=== PATIENT | female | born 1975 | race African-American/Black ===

== ENCOUNTER 2017-02-17 19:09 | Emergency (ER) | payer OTHER ==
--- NOTE | 2017-02-17 20:10 | ER Document Report ---
ED Medical Screen (RME) - General Chief Complaint: Chest Pain Stated Complaint: CHEST PAIN Time Seen by Provider: 02/17/17 20:00 Notes: This 41-year-old female patient reports onset about 6 PM tonight of left parasternal chest pain with sensation that the chest swelled up briefly. There is also pain from the left shoulder going onto the arm which still persists. Patient is not a smoker. She reports she has been told she had high blood pressure from time to time. She possibly had elevated cholesterol in the past. Family history is positive for early onset coronary artery disease in her father who had multiple stents and by history he began having problems in his 30s. He has since then. I have greeted and performed a rapid initial assessment of this patient. A comprehensive ED assessment and evaluation of the patient, analysis of test results and completion of the medical decision making process will be conducted by additional ED providers. TRAVEL OUTSIDE OF THE [place] IN LAST 30 DAYS: No - Related Data Allergies/Adverse Reactions: No Known Allergies Allergy (Unverified 09/06/15 08:36) Past Medical History - Past Medical History Cardiac Medical History: Denies: Hx Coronary Artery Disease, Hx Heart Attack, Hx Hypertension Pulmonary Medical History: Reports: Hx Asthma - inhalers/cpap Denies: Hx Bronchitis, Hx COPD, Hx Pneumonia Neurological Medical History: Denies: Hx Cerebrovascular Accident, Hx Seizures Renal/ Medical History: Denies: Hx Peritoneal Dialysis Musculoskeltal Medical History: Reports Hx Arthritis - knee - Immunizations Immunizations up to date: Yes Hx Diphtheria, Pertussis, Tetanus Vaccination: No Physical Exam - Vital signs Vitals: Temp Pulse Resp BP Pulse Ox 98.4 F 90 20 141/90 H 99 02/17/17 19:26 02/17/17 19:26 02/17/17 19:26 02/17/17 19:26 02/17/17 19:26 Course - Vital Signs Vital signs: Temp Pulse Resp BP Pulse Ox 98.4 F 90 20 141/90 H 99 02/17/17 19:26 02/17/17 19:26 02/17/17 19:26 02/17/17 19:26 02/17/17 19:26
--- NOTE | 2017-02-17 20:32 | RADIOLOGY REPORT (SQ) ---
EXAM DESCRIPTION: CHEST PA/LAT COMPLETED DATE/TIME: 02/17/2017 8:22 pm REASON FOR STUDY: chest pain COMPARISON: November 2008 EXAM PARAMETERS: NUMBER OF VIEWS: two views TECHNIQUE: Digital Frontal and Lateral radiographic views of the chest acquired. RADIATION DOSE: NA LIMITATIONS: none FINDINGS: LUNGS AND PLEURA: No opacities, masses or pneumothorax. No pleural effusion. MEDIASTINUM AND HILAR STRUCTURES: No masses or contour abnormalities. HEART AND VASCULAR STRUCTURES: Heart normal size. No evidence for failure. BONES: No acute findings. HARDWARE: None in the chest. OTHER: No other significant finding. IMPRESSION: NO SIGNIFICANT RADIOGRAPHIC FINDING IN THE CHEST. TECHNICAL DOCUMENTATION: JOB ID: [id number] [employer]- All Rights Reserved
[2017-02-17 20:37] LABS: ABSOLUTE EOSINOPHILS # (AUTO) 0.1 10^3/uL (0.0-0.6); ABSOLUTE LYMPHOCYTES (AUTO) 1.5 10^3/uL (0.5-4.7); ABSOLUTE MONOCYTES (AUTO) 0.3 10^3/uL (0.1-1.4); ABSOLUTE NEUT (AUTO) 4.6 10^3/uL (1.7-8.2); BASOPHILS % (AUTO) 0.7 % (0-2); EOSINOPHILS % (AUTO) 1.3 % (0-6); HEMATOCRIT 38.5 % (36.0-47.0); HEMOGLOBIN 12.8 g/dL (12.0-15.5); HGB HCT DIFFERENCE -0.1; LYMPHOCYTES % (AUTO) 22.6 % (13-45); MEAN CORPUSCULAR HEMOGLOBIN 27.6 pg (27.0-33.4); MEAN CORPUSCULAR HGB CONC 33.1 g/dL (32.0-36.0); MEAN CORPUSCULAR VOLUME 84 fl (80-97); MONOCYTES % (AUTO) 5.2 % (3-13); RED BLOOD COUNT 4.62 10^6/uL (3.72-5.28); RED CELL DISTRIBUTION WIDTH 14.9 % (11.5-14.0); SEGMENTED NEUTROPHILS % (AUTO) 70.2 % (42-78); WHITE BLOOD COUNT 6.6 10^3/uL (4.0-10.5)
[2017-02-17 21:03] LABS: ALANINE AMINOTRANSFERASE 37 U/L (9-52); ALBUMIN 4.7 g/dL (3.5-5.0); ALKALINE PHOSPHATASE 84 U/L (38-126); ANION GAP 12 (5-19); ASPARTATE AMINO TRANSFERASE 20 U/L (14-36); BILIRUBIN,DIRECT 0.4 mg/dL (0.0-0.4); BILIRUBIN,TOTAL 0.4 mg/dL (0.2-1.3); BLOOD UREA NITROGEN 11 mg/dL (7-20); CALCIUM 10.1 mg/dL (8.4-10.2); CARBON DIOXIDE 32 mmol/L (22-30); CHLORIDE 100 mmol/L (98-107); CHOLESTEROL 202.69 mg/dL (0-200); CREATINE KINASE 64 U/L (30-135); CREATININE RESULT 0.72 mg/dL (0.52-1.25); GLUCOSE 80 mg/dL (75-110); POTASSIUM 3.9 mmol/L (3.6-5.0); SODIUM 143.6 mmol/L (137-145); TOTAL PROTEIN 8.4 g/dL (6.3-8.2); TRIGLYCERIDES 255 mg/dL (<150)
--- NOTE | 2017-02-17 21:36 | ER Document Report ---
ED Cardiac - General Chief Complaint: Chest Pain Stated Complaint: CHEST PAIN Time Seen by Provider: 02/17/17 20:00 Mode of Arrival: Ambulatory Information source: Patient TRAVEL OUTSIDE OF THE [place] IN LAST 30 DAYS: No - HPI Patient complains to provider of: Chest pain Use of: Amphetamines - MAYBE, WEIGHT LOSS MED, THINKS MAYBE PHENTERMINE. denies : Alcohol, Bath salts, Caffeine, Cocaine, Decongestants Was the onset of pain: Sudden When did pain begin: 1800 HRS Is the pain a: New problem Chest pain location: Other - LEFT PARASTERNAL Quality of pain: Sharp, Tightness Chest pain radiation location: Left arm Severity now: None Severity at worst: Moderate Chest pain precipitating factors: Physical Exertion - MINIMAL (FOLDING CLOTHES) Positive cardiac history: No Associated symptoms: Shortness of breath - SLIGHT, Swelling/lump in chest - PROMINENT, VISIBLE AND PALPABLE. denies: Diaphoresis, Nausea/vomiting Exacerbated by: Other - PALPATION Relieved by: Other - IMPROVED W/ TIME Similar symptoms previously: No Recently seen / treated by doctor: Yes - [facility] - Related Data Allergies/Adverse Reactions: No Known Allergies Allergy (Unverified 09/06/15 08:36) Past Medical History - General Information source: Patient - Social History Smoking Status: Former Smoker Cigarette use (# per day): No Chew tobacco use (# tins/day): No Frequency of alcohol use: Rare Drug Abuse: None Lives with: Spouse/Significant other Family History: Reviewed & Not Pertinent - Past Medical History Cardiac Medical History: Denies: Hx Coronary Artery Disease, Hx Heart Attack, Hx Hypertension Pulmonary Medical History: Reports: Hx Asthma - inhalers/cpap Denies: Hx Bronchitis, Hx COPD, Hx Pneumonia Neurological Medical History: Denies: Hx Cerebrovascular Accident, Hx Seizures Renal/ Medical History: Denies: Hx Peritoneal Dialysis Musculoskeltal Medical History: Reports Hx Arthritis - knee Psychiatric Medical History: Reports: None Surgical Hx: Negative - Immunizations Immunizations up to date: Yes Hx Diphtheria, Pertussis, Tetanus Vaccination: No Review of Systems - Review of Systems Constitutional: No symptoms reported EENT: No symptoms reported Cardiovascular: See HPI Respiratory: See HPI Gastrointestinal: No symptoms reported Genitourinary: No symptoms reported Female Genitourinary: No symptoms reported Musculoskeletal: See HPI Skin: No symptoms reported Neurological/Psychological: No symptoms reported Physical Exam - Vital signs Vitals: Temp Pulse Resp BP Pulse Ox 98.4 F 90 20 141/90 H 99 02/17/17 19:26 02/17/17 19:26 02/17/17 19:26 02/17/17 19:26 02/17/17 19:26 Interpretation: Hypertensive. No: Tachycardic, Tachypneic - General General appearance: Appears well, Alert In distress: None - HEENT Head: Normocephalic Eyes: Normal Conjunctiva: Normal Ears: Normal Nasal: Normal Mouth/Lips: Normal Mucous membranes: Normal Pharynx: Normal Neck: Normal - Respiratory Respiratory status: No respiratory distress Chest status: Tender - SLIGHTLY, IN AREA OF COMPLAINT Breath sounds: Normal - Cardiovascular Rhythm: Regular Heart sounds: Normal auscultation Murmur: No - Abdominal Inspection: Normal Distension: No distension Bowel sounds: Normal - Back Back: Normal - Extremities General upper extremity: Normal inspection General lower extremity: Normal inspection - Neurological Neuro grossly intact: Yes Cognition: Normal Orientation: AAOx4 - Psychological Associated symptoms: Normal affect, Normal mood - Skin Skin Temperature: Warm Skin Moisture: Dry Skin Color: Normal Skin Turgor: Elastic Course - Vital Signs Vital signs: Temp Pulse Resp BP Pulse Ox 98.4 F 90 20 141/90 H 99 02/17/17 19:26 02/17/17 19:26 02/17/17 19:26 02/17/17 19:26 02/17/17 19:26 - Laboratory Result Diagrams: 02/17/17 20:30 02/17/17 20:30 Laboratory results interpreted by me: 02/17/17 02/17/17 20:30 20:30 RDW 14.9 H Carbon Dioxide 32 H Total Protein 8.4 H Triglycerides 255 H Cholesterol 202.69 H - Diagnostic Test Radiology reviewed: Reports reviewed - EKG Interpretation by Wi EKG shows normal: Sinus rhythm, Clint, Intervals, QRS Complexes, ST-T Waves Rate: Normal Rhythm: NSR Discharge - Discharge Clinical Impression: Chest wall pain Condition: Stable Disposition: HOME, SELF-CARE Instructions: Chest Wall Pain ([facility]) Additional Instructions: AVOID PAINFUL ACTIVITY. CONTINUE YOUR EFFORTS AT WEIGHT REDUCTION. FOLLOW UP WITH YOUR PRIMARY CARE PROVIDER IN 3-5 DAYS.
[2017-02-17 22:11] VITALS: BP 131/90
--- NOTE | 2017-02-18 07:42 | EKG REPORT ---
SEVERITY:- NORMAL ECG - SINUS RHYTHM : Confirmed by: Rico Best MD 18-Feb-2017 07:41:18
== END 2017-02-17 22:20 | disposition home or self-care (01) ==
LOC: ER 19:09
DX: R07.89 Other chest pain (principal); R06.02 Shortness of breath; N63 Unspecified lump in breast; Z87.891 Personal history of nicotine dependence
CPT/HCPCS: 36415; 71020; 80053; 82465; 82550; 84478; 84484; 85025; 93005; 93010; 99285

== ENCOUNTER 2018-12-03 05:18 | Emergency (ER) | payer OTHER ==
--- NOTE | 2018-12-03 07:22 | ER Document Report ---
ED General - General Chief Complaint: Abdominal Pain Stated Complaint: ABDOMINAL PAIN Time Seen by Provider: 12/03/18 07:13 Primary Care Provider: BARON CABRERA FNP [Primary Care Provider] - Follow up as needed Notes: 43-year-old female presents with right lower pelvic pain onset at 4 AM, abrupt, initially sharp and nonradiating and now slightly duller because she took a Tylenol PM. This is never happened before. She has a history of iron deficiency anemia but denies ovarian cysts fibroids or PID history. She has no fever or discharge. She has no flank pain or upper abdominal pain at this time. TRAVEL OUTSIDE OF THE [place] IN LAST 30 DAYS: No - Related Data Allergies/Adverse Reactions: No Known Allergies Allergy (Verified 02/17/17 22:12) Past Medical History - Social History Smoking Status: Never Smoker Chew tobacco use (# tins/day): No Frequency of alcohol use: None Drug Abuse: None Family History: Reviewed & Not Pertinent Patient has suicidal ideation: No Patient has homicidal ideation: No - Past Medical History Cardiac Medical History: Denies: Hx Coronary Artery Disease, Hx Heart Attack, Hx Hypertension Pulmonary Medical History: Reports: Hx Asthma - inhalers/cpap Denies: Hx Bronchitis, Hx COPD, Hx Pneumonia Neurological Medical History: Denies: Hx Cerebrovascular Accident, Hx Seizures Renal/ Medical History: Denies: Hx Peritoneal Dialysis Musculoskeletal Medical History: Reports Hx Arthritis - knee - Immunizations Immunizations up to date: Yes Hx Diphtheria, Pertussis, Tetanus Vaccination: No Review of Systems - Review of Systems Notes: REVIEW OF SYSTEMS GEN: Denies fever, chills, weight loss ENT: Denies sore throat, nasal discharge, ear pain EYES: Denies blurry vision, eye pain, discharge CV: Denies chest pain, palpitations, edema RESP: Denies cough, shortness of breath, wheezing GI: Lower abdominal pain MSK: Denies joint pain/swelling, edema, SKIN: Denies rash, skin lesions LYMPH: Denies swollen glands/lymph nodes NEURO: Denies headache, focal weakness or numbness, dizziness PSYCH: Denies depression, suicidal or homicidal ideation PHYSICAL EXAMINATION General: No acute distress, well-nourished Head: Atraumatic, normocephalic ENT: Mouth normal, oropharynx moist, no exudates or tonsillar enlargement Eyes: Conjunctiva normal, pupils equal, lids normal Neck: No JVD, supple, no guarding CVS: Normal rate, regular rhythm, no murmurs Resp: No resp distress, equal and normal breath sounds bilaterally GI: Nondistended, soft, tenderness to palpation just above the inguinal ligament the right, no McBurney's tenderness no rebound tenderness no rebound or guarding Ext: No deformities, no edema, normal range of motion in upper and lower ext Back: No CVA or midline TTP Skin: No rash, warm Lymphatic: No lymphadeopathy noted Neuro: Awake, alert. Face symmetric. GCS 15. Physical Exam - Vital signs Vitals: Temp Pulse Resp BP Pulse Ox 98.6 F 85 16 136/72 H 99 12/03/18 05:29 12/03/18 05:29 12/03/18 05:29 12/03/18 05:29 12/03/18 05:29 Course - Re-evaluation Re-evalutation: 12/03/18 07:22 Abrupt right pelvic pain concerning for ovarian pathology. She has no discharge or fever so doubt PID. The pain is low, and she is not tender over her appendix area. 12/03/18 11:00 Work-up shows desiring fibroid, normal ovaries. Patient feels better after pain medication. P.o. challenge, will be discharged home with Jeffrey and Santa and referred to women's health for further follow-up. I have discussed with the patient there likely diagnosis, aftercare plan, follow-up plans and my usual and customary return precautions. They verbalized understanding of this. - Vital Signs Vital signs: Temp Pulse Resp BP Pulse Ox 97.5 F 72 16 130/63 H 100 12/03/18 09:50 12/03/18 09:50 12/03/18 09:50 12/03/18 09:50 12/03/18 09:50 - Laboratory Result Diagrams: 12/03/18 08:39 12/03/18 08:39 Laboratory results interpreted by me: 12/03/18 12/03/18 12/03/18 07:15 08:39 08:39 MCH 26.1 L RDW 15.5 H Seg Neutrophils % 79.0 H Glucose 113 H Urine Blood MODERATE H - Diagnostic Test Radiology reviewed: Image reviewed, Reports reviewed Discharge - Discharge Clinical Impression: Fibroid uterus Qualifiers: Uterine leiomyoma location: intramural Qualified Code(s): D25.1 - Intramural leiomyoma of uterus Condition: Good Disposition: HOME, SELF-CARE Instructions: Abdominal Pain ([facility]) Additional Instructions: You have been seen for abdominal pain and we have discovered you have a fibroid. This is a benign tumor of the uterus. When they get large enough, it become inflamed. This what is causing her pain. I am prescribing her pain and nausea medication, I would like you to follow-up with your women's health provider within 3 to 5 days. He felt worsening pain fever chills or vaginal discharge please return to the emergency room. Prescriptions: Ibuprofen [Motrin 600 Mg Tablet] 600 mg PO TID #15 tablet Ondansetron [Zofran Odt 4 mg Tablet] 1 - 2 tab PO Q4H PRN #15 tab.rapdis PRN Reason: For Nausea/Vomiting Referrals: BARON CABRERA FNP [Primary Care Provider] - Follow up as needed
[2018-12-03 07:31] LABS: APPEARANCE,URINE SLIGHTLY-CLOUDY; BILIRUBIN,URINE NEGATIVE (NEGATIVE); COLOR,URINE YELLOW; GLUCOSE, URINE NEGATIVE (NEGATIVE); KETONES,URINE NEGATIVE (NEGATIVE); LEUKOCYTE ESTERASE,URINE NEGATIVE (NEGATIVE); NITRITE,URINE NEGATIVE (NEGATIVE); PROTEIN,URINE NEGATIVE (NEGATIVE); URINE SPECIFIC GRAVITY 1.016; UROBILINOGEN,URINE NEGATIVE mg/dL (<2.0)
[2018-12-03 08:51] LABS: ABSOLUTE LYMPHOCYTES (AUTO) 1.2 10^3/uL (0.5-4.7); ABSOLUTE MONOCYTES (AUTO) 0.3 10^3/uL (0.1-1.4); ABSOLUTE NEUT (AUTO) 5.9 10^3/uL (1.7-8.2); BASOPHILS % (AUTO) 0.5 % (0-2); EOSINOPHILS % (AUTO) 0.6 % (0-6); HEMATOCRIT 37.5 % (36.0-47.0); HEMOGLOBIN 12.2 g/dL (12.0-15.5); LYMPHOCYTES % (AUTO) 15.6 % (13-45); MEAN CORPUSCULAR HEMOGLOBIN 26.1 pg (27.0-33.4); MEAN CORPUSCULAR HGB CONC 32.6 g/dL (32.0-36.0); MEAN CORPUSCULAR VOLUME 80 fl (80-97); MONOCYTES % (AUTO) 4.3 % (3-13); PLATELET COUNT 322 10^3/uL (150-450); RED BLOOD COUNT 4.68 10^6/uL (3.72-5.28); RED CELL DISTRIBUTION WIDTH 15.5 % (11.5-14.0); TOTAL CELLS COUNTED % (AUTO) 100 %; WHITE BLOOD COUNT 7.5 10^3/uL (4.0-10.5)
[2018-12-03 09:15] LABS: ALANINE AMINOTRANSFERASE 18 U/L (9-52); ALBUMIN 4.6 g/dL (3.5-5.0); ALKALINE PHOSPHATASE 70 U/L (38-126); ANION GAP 13 (5-19); ASPARTATE AMINO TRANSFERASE 24 U/L (14-36); BILIRUBIN,DIRECT 0.3 mg/dL (0.0-0.4); BILIRUBIN,TOTAL 0.5 mg/dL (0.2-1.3); BLOOD UREA NITROGEN 12 mg/dL (7-20); CALCIUM 9.8 mg/dL (8.4-10.2); CARBON DIOXIDE 24 mmol/L (22-30); CHLORIDE 104 mmol/L (98-107); GLUCOSE 113 mg/dL (75-110); POTASSIUM 4.7 mmol/L (3.6-5.0); SODIUM 141.2 mmol/L (137-145); TOTAL PROTEIN 7.9 g/dL (6.3-8.2)
--- NOTE | 2018-12-03 10:23 | RADIOLOGY REPORT (SQ) ---
EXAM DESCRIPTION: U/S NON OB PEL TV W/DOPPLER COMPLETED DATE/TIME: 12/03/2018 9:45 am REASON FOR STUDY: l pelvic pn r/o torsion COMPARISON: None. TECHNIQUE: Dynamic and static grayscale images acquired of the pelvis via transvaginal approach and recorded on PACS. Additional selected color Doppler and spectral images recorded. LIMITATIONS: None. FINDINGS: UTERUS: Uterus is 8 x 6 x 5 cm in size. There is a leftward posterior lower uterine segme nt fibroid with heterogeneous echogenicity likely degenerating, measuring about 3.3 cm in size. ENDOMETRIAL STRIPE: Difficult to visualize. Multiple complex cysts versus polyps are present in the endometrial canal, 2 cm in size along the rightward uterine fundus, 1 cm along the leftward uterine f undus and 1.5 cm along the lower uterine segment. CERVIX: No nabothian cysts. Closed, 2 cm in length. RIGHT OVARY AND DOPPLER: Normal size right ovary, 2.6 x 2.1 x 2 cm in size. . No worrisome masses. N ormal arterial vascular flow without evidence for torsion. LEFT OVARY AND DOPPLER: Normal size, left ovary 3.4 x 3.1 x 2.7 cm in size. No worrisome masses. Norm al arterial vascular flow without evidence for torsion. FREE FLUID: None noted. OTHER: No other significant finding. IMPRESSION: No ultrasound evidence of ovarian torsion. No free pelvic fluid. 3 cm probable degenerating fibroid Cysts with debris versus polyps in the endometrial canal. Findings are abnormal. TECHNICAL DOCUMENTATION: JOB ID: [id number] [employer]- All Rights Reserved Rev Reading location - IP/workstation name: [email or web address]
[2018-12-03 11:12] VITALS: BP 135/64
== END 2018-12-03 11:13 | disposition home or self-care (01) ==
LOC: ER 05:18
DX: D25.1 Intramural leiomyoma of uterus (principal); R10.9 Unspecified abdominal pain; R10.2 Pelvic and perineal pain
CPT/HCPCS: 36415; 76830; 80053; 81001; 81025; 83690; 84702; 85025; 93976; 99284

== ENCOUNTER → 2020-02-07 | Outpatient (CLI) | payer OTHER ==
--- NOTE | 2020-02-07 17:10 | EKG REPORT ---
SEVERITY:- NORMAL ECG - SINUS RHYTHM : Confirmed by: Rico Best MD 07-Feb-2020 17:09:29
== END ==
LOC: OD 14:11
PROVIDERS: ATTEND Specialist
DX: I49.9 Cardiac arrhythmia, unspecified (principal)
CPT/HCPCS: 93005; 93010

== ENCOUNTER 2020-07-29 16:08 | Emergency (ER) | payer OTHER ==
[2020-07-29] MEDS ORDERED: KETOROLAC TROMETHAMINE 60 MG/2 ML SDV IM ONE (16:21)
--- NOTE | 2020-07-29 16:24 | ER Document Report ---
ED Extremity Problem, Lower - General Chief Complaint: Foot Pain Stated Complaint: RIGHT FOOT PAIN,GREAT TOE NUMBNESS Time Seen by Provider: 07/29/20 16:17 Primary Care Provider: BARON CABRERA FNP [Primary Care Provider] - Follow up as needed Notes: CHIEF COMPLAINT: Right foot pain today HPI: 45-year-old diabetic female presenting with right foot pain today on the dorsal aspect of the foot with some numbness and tingling in the great toe. [place] fine going to bed no trauma. No redness. No fever. Took no medications for her symptoms. States she cannot walk on it because of discomfort to the foot ROS: See HPI - all other systems were reviewed and are otherwise negative Constitutional: no fever Integumentary: no rash Allergy: no hives Musculoskeletal: + extremity pain or swelling Neurological: + numbness/tingling, no weakness MEDICATIONS: I agree with the patient medications as charted by the RN. ALLERGIES: I agree with the allergies as charted by the RN. PAST MEDICAL HISTORY/PAST SURGICAL HISTORY: Reviewed and agree as charted by RN. SOCIAL HISTORY: Reviewed and agree as charted by RN. FAMILY HISTORY: No significant familial comorbid conditions directly related to patient complaint EXAM: Reviewed vital signs as charted by RN. CONSTITUTIONAL: Alert and oriented and responds appropriately to questions. Well-appearing; well-nourished HEAD: Normocephalic; atraumatic EYES: Conjunctivae clear, sclerae non-icteric ENT: normal nose; no rhinorrhea; moist mucous membranes NECK: Supple without meningismus CARD: symmetric distal pulses RESP: Normal chest excursion without splinting or tachypnea ABD/GI: non-distended BACK: The back appears normal EXT: Normal ROM in all joints; no visible lesions to the right foot. No visible swelling to the right foot. Dorsalis pedis and posterior tibial pulses are present in the right foot and ankle. No medial or lateral malleolus tenderness over the right ankle. Sensation is intact in the toes although she reports some decreased sensation on the dorsal aspect of the right great toe. No visible ulcerations. SKIN: Normal color for age and race; warm; dry; good turgor; no acute lesions noted NEURO: Moves all extremities equally PSYCH: The patient's mood and manner are appropriate. Grooming and personal hygiene are appropriate. MDM: 45-year-old female presenting with pain to the dorsal foot without trauma. No visible lesions or cellulitis. Pulses are good. She reports some decreased sensation in the great toe, perhaps mild diabetic neuropathy. Will obtain an x- ray of the foot will obtain an Accu-Chek as she does not consistently check her blood sugars and recently started back on Metformin once daily. Will give Toradol. She will likely need crutches to assist with weightbearing, anticipate discharge to follow-up with PCP TRAVEL OUTSIDE OF THE [place] IN LAST 30 DAYS: No - Related Data Allergies/Adverse Reactions: No Known Allergies Allergy (Verified 02/17/17 22:12) Past Medical History - Social History Smoking Status: Unknown if Ever Smoked Family History: Reviewed & Not Pertinent - Past Medical History Cardiac Medical History: Denies: Hx Coronary Artery Disease, Hx Heart Attack, Hx Hypertension Pulmonary Medical History: Reports: Hx Asthma - inhalers/cpap Denies: Hx Bronchitis, Hx COPD, Hx Pneumonia Neurological Medical History: Denies: Hx Cerebrovascular Accident, Hx Seizures Endocrine Medical History: Reports: Hx Diabetes Mellitus Type 2 Renal/ Medical History: Denies: Hx Peritoneal Dialysis Musculoskeletal Medical History: Reports Hx Arthritis - knee - Immunizations Immunizations up to date: Yes Hx Diphtheria, Pertussis, Tetanus Vaccination: No Course - Re-evaluation Re-evalutation: 07/29/20 16:39 I do not visualize a fracture on my review of the x-ray. Will treat symptomatically refer to PCP for follow-up - Laboratory Results Critical Laboratory Results Reviewed: No Critical Results - Radiology Results Critical Radiology Results Reviewed: No Critical Results Discharge - Discharge Clinical Impression: Right foot pain Condition: Stable Disposition: HOME, SELF-CARE Additional Instructions: Medications as prescribed no driving if taking narcotics for pain follow-up with your primary care provider for reevaluation of your symptoms on Friday call for appointment Prescriptions: Hydrocodone/Acetaminophen [Free [place]il 5-325 mg Tablet] 1 tab PO Q4 PRN #10 tablet PRN Reason: Diclofenac Sodium [Voltaren 50 Mg Tablet.] 50 mg PO BID #20 tablet. Referrals: BARON CABRERA FNP [Primary Care Provider] - Follow up as needed
--- NOTE | 2020-07-29 17:01 | RADIOLOGY REPORT (SQ) ---
EXAM DESCRIPTION: FOOT RIGHT COMPLETE IMAGES COMPLETED DATE/TIME: 07/29/2020 4:36 pm REASON FOR STUDY: pain COMPARISON: None. NUMBER OF VIEWS: Three views. TECHNIQUE: AP, lateral and oblique without weight bearing radiographic images acquired of the right foot. LIMITATIONS: None. FINDINGS: MINERALIZATION: Normal. BONES: No acute fracture or dislocation. No worrisome bone lesions. No significant osteophytes. JOINTS: No erosions. No jaciel-articular osteopenia. No chondrocalcinosis. SOFT TISSUES: No swelling. No calcifications. OTHER: No other significant finding. IMPRESSION: NEGATIVE STUDY OF THE RIGHT FOOT. NO EXPLANATION FOR PAIN. TECHNICAL DOCUMENTATION: JOB ID: [id number] 2010 [employer]- All Rights Reserved Reading location - IP/workstation name: [email or web address]
--- OUTSIDE RECORDS SUMMARY | 2020-08-01 10:33 | XMS REPORT ---
:1975 Author Organization [facility] Address [address] [address] Care Team Providers Name Role Phone Unavailable Unavailable Unavailable Allergies, Adverse Reactions, Alerts This patient has no known allergies or adverse reactions. Medications This patient has no known medications. Problems This patient has no known problems. Procedures This patient has no known procedures. Results Test Description Test Time Test Comments Text Results Atomic Results Result Comments URINE CULTURE, ROUTINE Test Item Value Reference Range Comments URINE CULTURE, ROUTINE (test code = FINAL FINAL REPORT 630-4) RESULT 1 (test code = 630-48) MUG [place] XED UROGENITAL FLORA10,000-25,000 COLONY FORMING U NITS PER ML URINE CULTURE, ROUTINE Test Item Value Reference Range Comments URINE CULTURE, ROUTINE (test FINAL FIN AL REPORT code = 630-4) RESULT 1 (test code = 630-48) ECV ES CHERICHIA COLI, IDENTIFIED BY AN AUTOMATED BIO CHEMICAL SYSTEM.50,000-10 0,000 COLONY FORMING UNITS PE R MLCEFAZOLIN <=4 UG/MLCEFAZOL IN WITH AN VIRI <=16 PREDICTS POSEY SCEPTIBILITY TO THE ORAL AGENTSC EFACLOR, CEFDINIR, CEFPOD OXIME, CEFPROZIL, CEFUR OXIME, CEPHALEXIN,AND L ORACARBEF WHEN USED FOR THERAPY OF UNCOMPLICATED UR INARY TRACTINFECTIONS DUE TO E. COLI, KLEBSIELLA PNEUM ONIAE, AND PROTEUSMIRABILIS . ANTIMICROBIAL SUSCEPTIBILITY MIHEAD S = SUSCEPTIBLE; I = (test code = 63272-0) INTERMEDIA TE; R = RESISTANT P = POSITIVE; N = NEGATIVEMICS ARE EXPRESSED IN MICROGRAMS PER MLANTIBIOTIC RSLT#1 RSLT#2 RSLT#3 RSLT#4 Social History This patient has no known social history. Vital Signs This patient has no known vital signs.
== END 2020-07-29 16:57 | disposition home or self-care (01) ==
LOC: ER 16:08
DX: M79.671 Pain in right foot (principal); R20.0 Anesthesia of skin; R20.2 Paresthesia of skin; E11.9 Type 2 diabetes mellitus without complications; J45.909 Unspecified asthma, uncomplicated
CPT/HCPCS: 99284; 96372; 82962; 73630; J1885